=== PATIENT | female | born 1975 | race Caucasian/White ===

== ENCOUNTER 2020-04-16 14:37 | Outpatient (CLI) | payer OTHER | END 2020-04-16 15:09 | disposition home or self-care (01) | LOC: RAD 14:37 | PROVIDERS: ATTEND Orthopaedic Surgery | DX: M79.672 Pain in left foot (principal) ==

== ENCOUNTER → 2024-09-30 | Outpatient (CLI) | payer OTHER | END | disposition home or self-care (01) | LOC: SONOGRAMA 09:48 | DX: M79.672 Pain in left foot (principal) ==